=== PATIENT | male | born 1955 | race Caucasian/White ===

== ENCOUNTER 2019-07-30 08:11 | Observation (INO) | payer MEDICARE, OTHER, SELFPAY ==
[2019-07-30] MEDS ORDERED: Adacel (T-DAP) 0.5 ML SYRINGE ONE (08:46)
[2019-07-30] MEDS ORDERED: Dextrose 50% Abboject 50 ML SYRINGE SLOW IVP PRN (09:27)
[2019-07-30] MEDS ORDERED: Ondansetron PF 4 MG/2 ML Vial IVP PRN (09:27)
[2019-07-30] MEDS ORDERED: Insulin Regular 300 UNITS/3 ML VIAL SC PRN ×2 (09:27)
[2019-07-30] MEDS ORDERED: Dextrose 5% in Water 1,000 ML IV PRN (09:27)
[2019-07-30] MEDS ORDERED: traMADol HCl 50 MG TAB PO PRN ×2 (09:36)
[2019-07-30 10:29] LABS: Anion Gap 17 mmol/L (10-20); BUN (Urea Nitrogen) 14 mg/dL (8.4-25.7); Calc. Creatinine Clearance 0 mL/min (70-130); Calcium 8.6 mg/dL (7.8-10.44); Carbon Dioxide 23 mmol/L (23-31); Chloride 106 mmol/L (98-107); Estimated GFR-MDRD 86; Glucose 94 mg/dL (80-115); Phosphorus 2.9 mg/dL (2.3-4.7); Potassium 3.9 mmol/L (3.5-5.1); Sodium 142 mmol/L (136-145)
[2019-07-30 10:31] LABS: Hemoglobin 14.3 g/dL (14.0-18.0); Mean Corpuscular HGB CONC 31.3 g/dL (32.0-36.0); Mean Corpuscular Hemoglobin 28.1 pg (27.0-31.0); Mean Corpuscular Volume 89.7 fL (78.0-98.0); Platelet Count 250 thou/uL (130-400); RBC Distribution Width 13.5 % (11.5-14.5); Red Blood Cell (RBC) Count 5.11 mill/uL (4.70-6.10)
[2019-07-30 11:03] LABS: Band 8 % (5-11); Lymphocytes 10 % (21-51); MDiff Complete? YES; Monocytes 3 % (0-10); Neutrophil 79 % (42-75)
[2019-07-30 12:09] VITALS: BMI 28.1
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
[2019-07-30] MEDS: Acetaminophen 500 MG TAB PO SCH ×2 (12:27→18:27)
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
[2019-07-30] MEDS ORDERED: cloNIDine 0.1 MG TAB PO PRN ×3 (16:39→17:59)
[2019-07-30] MEDS ORDERED: Mag-Al Plus 1200 MG/1200 MG/120 MG/30 ML UDCUP PO PRN (16:39)
[2019-07-30] MEDS ORDERED: diphenhydrAMINE 50 MG CAP PO PRN (16:39)
[2019-07-30] MEDS: Cephalexin 250 MG CAP PO SCH ×2 (17:46→22:45)
[2019-07-30] MEDS ORDERED: diphenhydrAMINE 50 MG/ML VIAL IVP SCH (18:00)
[2019-07-30] MEDS ORDERED: Lorazepam 2 MG/ML VIAL SLOW IVP SCH (18:00)
[2019-07-30] MEDS ORDERED: Haloperidol Lactate 5 MG/ML VIAL SLOW IVP SCH (18:00)
[2019-07-30] MEDS: Famotidine/PF 20 mg/2ml Vial SLOW IVP SCH (21:11)
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
[2019-07-30] MEDS: Divalproex Sodium DR 500 MG TAB PO SCH (22:45)
[2019-07-30] MEDS: Furosemide 40 MG TAB PO SCH (22:45)
[2019-07-30] MEDS: Potassium Chloride 20 MEQ TAB PO SCH (22:45)
--- NOTE | 2019-07-31 00:25 | PRG ---
DATE OF SERVICE: 07/30/2019 SUBJECTIVE: The patient was seen during evening rounds, sleeping comfortably on the surgical floor. The patient's daughter states he has been sleeping since shift change. The patient refused to take his evening medications as he stated they did not look the same as her normal medications that he takes daily. The patient was severely agitated earlier in the day. The patient had put his clothes back on and was attending to leave the hospital. The patient is in involuntary admission to [facility], where he fell earlier today. OBJECTIVE: VITAL SIGNS: Temperature 97.5, pulse 85, respirations 16, SpO2 of 97% on room air, and blood pressure 116/77. GENERAL: Middle-aged gentleman, resting comfortably in hospital bed, in no acute distress. RESPIRATORY: Equal chest rise and fall. Respirations are even and nonlabored. ASSESSMENT: 1. Status post fall from standing with unknown loss of consciousness. No anticoagulation use. 2. Possible trace subarachnoid hemorrhage. 3. Left auricular hematoma, status post drainage. 4. Left lateral orbital wall fracture, fracture of the anterior and lateral olmstead of the left maxilla, and minimally depressed segmental fracture of the left zygoma. 5. Chronic bilateral lower extremity edema and cellulitis, currently being treated with Keflex. 6. History of schizophrenia, bipolar disorder, prediabetes, gout, and kidney stones. PLAN: Continue supportive care and q.2 hours neuro checks. The patient's repeat head CT, stable. The patient is to follow up in 1 month with Neurosurgery. Regular diet as tolerated. The patient should be able to be discharged back to [facility] after OMFS re-evaluate his ear tomorrow morning. Job ID: [id number] MTDD
[2019-07-31] MEDS: Acetaminophen 500 MG TAB PO SCH ×4 (01:52→18:47)
[2019-07-31] MEDS ORDERED: Levothyroxine Sodium 75 MCG TAB PO SCH (06:00)
[2019-07-31] MEDS: Senokot S 8.6-50 MG TAB PO SCH ×2 (06:46→09:22)
[2019-07-31] MEDS ORDERED: Allopurinol 100 MG TAB PO SCH (09:00)
[2019-07-31] MEDS ORDERED: Polyethylene Glycol 3350 17 GM Packet PO SCH (09:00)
[2019-07-31] MEDS: Cephalexin 250 MG CAP PO SCH ×3 (09:17→17:50)
[2019-07-31] MEDS: Potassium Chloride 20 MEQ TAB PO SCH (09:17)
[2019-07-31] MEDS: Furosemide 40 MG TAB PO SCH (09:17)
[2019-07-31] MEDS: Divalproex Sodium DR 500 MG TAB PO SCH (09:17)
[2019-07-31] MEDS: Famotidine/PF 20 mg/2ml Vial SLOW IVP SCH (09:24)
--- NOTE | 2019-07-31 09:30 | PRG ---
DATE OF SERVICE: 07/31/2019 SUBJECTIVE: Mr. Bernard has no complaints today. He is awake and alert. He is ambulating around in the room. His scalp dressing is intact. OBJECTIVE: VITAL SIGNS: He is afebrile. Vital signs are stable. CHEST: Clear. HEART: Regular rate. NEURO: Intact. ASSESSMENT: 1. Small subarachnoid, stable. 2. Sinus fracture, stable. PLAN: He is going to be discharged today. Job ID: [id number]
[2019-07-31 15:14] VITALS: BP 136/76; TEMP 98.4
--- NOTE | 2019-07-31 15:43 | DIS ---
DATE OF ADMISSION: 07/30/2019 DATE OF DISCHARGE: 07/31/2019 ADMISSION DIAGNOSES: Fall from standing, trace subarachnoid hemorrhage, left auricular hematoma, left orbital wall fracture, left maxillary sinus fracture, left zygomatic arch fracture. DISCHARGE DIAGNOSES: Fall from standing, trace subarachnoid hemorrhage, left auricular hematoma, left orbital wall fracture, left maxillary sinus fracture, left zygomatic arch fracture. CONSULTING PHYSICIANS: Dr. Carrasco of Neurosurgery and Dr. Jenkins of [facility]. PROCEDURES: None. HOSPITAL COURSE: The patient is a 64-year-old male, who presented from [facility] after a fall from standing. He was found to have a trace subarachnoid hemorrhage; left auricular hematoma; left orbital wall, left maxillary sinus, and left zygomatic arch fractures. The patient also had ongoing bilateral lower extremity cellulitis, for which he is receiving antibiotics. He was admitted to [facility]. Repeat CT of the brain was stable. Left auricular hematoma was drained and stable. The next day, a new dressing was placed. Dr. Jenkins evaluated the patient and recommended sinus precaution, dressing to left ear for another 24 hours and follow up in a week. Dr. Carrasco recommended follow up in 1 month with repeat head CT. The patient was sent home with Cipro x7 days per the recommendations of Dr. Jenkins due to his facial trauma. DISCHARGE DISPOSITION: [facility]. DISCHARGE CONDITION: Satisfactory. PHYSICAL EXAMINATION: VITAL SIGNS: Temperature 98, pulse 94, respirations 16, oxygen saturation 97% on room air, blood pressure 158/90. GENERAL: Well-appearing elderly male, sitting up at edge of bed with no signs of acute distress. PULMONARY: Equal chest rise and fall. No signs of acute respiratory distress. CARDIAC: Regular rate and rhythm. GI: Abdomen is soft, nontender, nondistended. EXTREMITIES: 2+ pulses in all extremities. Gross motor and sensation are intact. Persistent cellulitis in bilateral lower extremities. Face, he has an abrasion to his right forehead and nose. He also has bruising to his left ear. There is no auricular hematoma present any longer. NEUROLOGIC: GCS is 15. DISCHARGE INSTRUCTIONS: The patient was discharged to [facility]. He is to return there. Activity as tolerated. Regular diet. No therapy or equipment needed. DISCHARGE MEDICATIONS: Include; 1. Tylenol. 2. Allopurinol. 3. Keflex. 4. Cipro x7 days. 5. Clonidine. 6. Depakote. 7. Lasix. 8. Levothyroxine. 9. Potassium chloride. 10. Seroquel. 11. Vitamin A and D. FOLLOWUP APPOINTMENTS: The patient is to follow up in [address] Carrasco with repeat CT of the brain. He also has a followup with Dr. Jenkins in 1 week. No followup needed with Trauma Service. This is a summary of the patient's hospitalization. For full details, please see his medical record in its entirety. Job ID: [id number]
[2019-07-31] MEDS ORDERED: Ciprofloxacin 500 MG TAB PO SCH (20:00)
== END 2019-07-31 20:30 | disposition short-term general hospital (02) ==
LOC: ERS 08:11 → SURG A 09:26
PROVIDERS: ADMIT Surgery; ATTEND Surgery
DX: S06.6X9A Traumatic subarachnoid hemorrhage with loss of consciousness of unspecified duration, initial encounter (principal); S02.85XA Fracture of orbit, unspecified, initial encounter for closed fracture; S02.40DA Maxillary fracture, left side, initial encounter for closed fracture; S02.40FA Zygomatic fracture, left side, initial encounter for closed fracture; S00.432A Contusion of left ear, initial encounter; L03.116 Cellulitis of left lower limb; L03.115 Cellulitis of right lower limb; R73.03 Prediabetes; F20.9 Schizophrenia, unspecified; F31.9 Bipolar disorder, unspecified; M10.9 Gout, unspecified; Z79.899 Other long term (current) drug therapy; W18.30XA Fall on same level, unspecified, initial encounter
CPT/HCPCS: 36415; 36416; 70450; 80048; 83735; 84100; 85007; 85027; 90471; 90715; 93005; 93010; 94760; 96374; 96375; 96376; G0378; G0390; J0690; J1200; J1630; J2060; S0028

== ENCOUNTER 2020-11-26 14:46 | Emergency (ER) | payer SELFPAY ==
[2020-11-26 16:12] LABS: #Basophils 0.1 thou/uL (0.0-0.2); #Eosinphils 0.1 thou/uL (0.0-0.7); #Lymphocytes 1.8 thou/uL (1.20-3.40); #Monocytes 0.7 thou/uL (0.11-0.59); #Neutrophils 6.1 thou/uL (1.40-6.50); %Basophils 0.7 % (0.0-1.0); %Eosinophils 1.6 % (0.0-10.0); %Lymphocytes 20.9 % (21.0-51.0); %Monocytes 7.6 % (0.0-10.0); %Neutrophils 69.2 % (42.0-75.0); Hemoglobin 17.2 g/dL (14.0-18.0); Mean Corpuscular Hemoglobin 29.6 pg (27.0-31.0); Mean Corpuscular Volume 86.9 fL (78.0-98.0); Mean Platelet Volume 8.3 fL (7.4-10.4); Platelet Count 206 thou/uL (130-400); Red Blood Cell (RBC) Count 5.83 mill/uL (4.70-6.10); White Blood Cell (WBC) Count 8.8 thou/uL (4.8-10.8)
[2020-11-26 16:33] LABS: ALT (SGPT) 19 U/L (8-55); AST (SGOT) 21 U/L (5-34); Albumin 3.9 g/dL (3.4-4.8); Alkaline Phosphatase 60 U/L (40-110); Anion Gap 11 mmol/L (10-20); BUN (Urea Nitrogen) 13 mg/dL (8.4-25.7); Bilirubin, Total 0.7 mg/dL (0.2-1.2); Calc. Creatinine Clearance 0 mL/min (70-130); Calcium 9.9 mg/dL (7.8-10.44); Carbon Dioxide 29 mmol/L (23-31); Chloride 104 mmol/L (98-107); Globulin 2.7 g/dL (2.4-3.5); Glucose 93 mg/dL (80-115); Potassium 5.2 mmol/L (3.5-5.1); Protein, Total 6.6 g/dL (5.8-8.1); Sodium 139 mmol/L (136-145)
[2020-11-26] MEDS ORDERED: Furosemide 40 MG TAB ONE (18:04)
[2020-11-26] MEDS ORDERED: Nitroglycerin 2% Ointment 1 INCH/1 GM Packet ONE (18:04)
[2020-11-26] MEDS ORDERED: Furosemide 20 MG/2 ML VIAL ONE (18:06)
== END 2020-11-26 19:04 | disposition home or self-care (01) ==
LOC: ERS 14:46
DX: M79.89 Other specified soft tissue disorders (principal); M10.9 Gout, unspecified
CPT/HCPCS: 36415; 71045; 80053; 83880; 84484; 85025; 93005; 96374; J1940

== ENCOUNTER 2020-12-04 11:00 | Emergency (ER) | payer MEDICARE, SELFPAY ==
[2020-12-04 12:15] LABS: #Basophils 0.1 thou/uL (0.0-0.2); #Eosinphils 0.1 thou/uL (0.0-0.7); #Lymphocytes 1.5 thou/uL (1.20-3.40); #Monocytes 0.6 thou/uL (0.11-0.59); %Basophils 1.3 % (0.0-1.0); %Eosinophils 1.9 % (0.0-10.0); %Lymphocytes 20.5 % (21.0-51.0); %Monocytes 8.5 % (0.0-10.0); %Neutrophils 67.8 % (42.0-75.0); Hemoglobin 16.7 g/dL (14.0-18.0); Mean Corpuscular Hemoglobin 29.1 pg (27.0-31.0); Mean Corpuscular Volume 85.7 fL (78.0-98.0); Mean Platelet Volume 8.2 fL (7.4-10.4); Platelet Count 208 thou/uL (130-400); Red Blood Cell (RBC) Count 5.73 mill/uL (4.70-6.10); White Blood Cell (WBC) Count 7.3 thou/uL (4.8-10.8)
[2020-12-04 12:33] LABS: ALT (SGPT) 34 U/L (8-55); AST (SGOT) 33 U/L (5-34); Albumin 3.8 g/dL (3.4-4.8); Alkaline Phosphatase 66 U/L (40-110); Anion Gap 13 mmol/L (10-20); BUN (Urea Nitrogen) 24 mg/dL (8.4-25.7); Bilirubin, Total 0.8 mg/dL (0.2-1.2); Calc. Creatinine Clearance 0 mL/min (70-130); Calcium 9.2 mg/dL (7.8-10.44); Carbon Dioxide 30 mmol/L (23-31); Chloride 101 mmol/L (98-107); Globulin 2.6 g/dL (2.4-3.5); Glucose 102 mg/dL (80-115); Potassium 4.1 mmol/L (3.5-5.1); Protein, Total 6.4 g/dL (5.8-8.1); Sodium 140 mmol/L (136-145)
== END 2020-12-04 13:37 | disposition home or self-care (01) ==
LOC: ERS 11:00
DX: M79.89 Other specified soft tissue disorders (principal); Z79.899 Other long term (current) drug therapy; M10.9 Gout, unspecified
CPT/HCPCS: 36415; 71045; 80053; 83880; 84484; 85025; 93005

== ENCOUNTER 2021-01-03 11:54 | Emergency (ER) | payer MEDICARE ==
[2021-01-03 12:46] LABS: #Basophils 0.1 thou/uL (0.0-0.2); #Eosinphils 0.1 thou/uL (0.0-0.7); #Lymphocytes 1.3 thou/uL (1.20-3.40); #Monocytes 0.7 thou/uL (0.11-0.59); #Neutrophils 5.1 thou/uL (1.40-6.50); %Basophils 1.1 % (0.0-1.0); %Eosinophils 1.3 % (0.0-10.0); %Lymphocytes 18.3 % (21.0-51.0); %Monocytes 9.2 % (0.0-10.0); %Neutrophils 70.1 % (42.0-75.0); Hemoglobin 15.2 g/dL (14.0-18.0); Mean Corpuscular HGB CONC 32.8 g/dL (32.0-36.0); Mean Corpuscular Hemoglobin 28.7 pg (27.0-31.0); Mean Corpuscular Volume 87.4 fL (78.0-98.0); Mean Platelet Volume 7.8 fL (7.4-10.4); Platelet Count 243 thou/uL (130-400); RBC Distribution Width 13.1 % (11.5-14.5); Red Blood Cell (RBC) Count 5.28 mill/uL (4.70-6.10); White Blood Cell (WBC) Count 7.3 thou/uL (4.8-10.8)
[2021-01-03 12:59] LABS: Bacteria/HPF None Seen HPF (None Seen); Bilirubin Negative (Negative); Blood, Urine Trace (Negative); Clarity Clear (Clear); Glucose, Urine (Dipstick) Normal (Negative); Ketone, Urine Negative (Negative); Leukocyte Negative Leu/uL (Negative); Nitrite Negative (Negative); Protein, Urine (Dipstick) Negative (Neg-Trace); Specific Gravity, Urine 1.014 (1.002-1.036); Squamous Epithelial None Seen HPF (0-3); Urobilinogen Normal mg/dL (Less than 2); WBC/HPF 0-3 HPF (0-3); pH, Urine 6.5 (5.0-9.0)
[2021-01-03 13:07] LABS: ALT (SGPT) 18 U/L (8-55); AST (SGOT) 22 U/L (5-34); Albumin 3.5 g/dL (3.4-4.8); Alkaline Phosphatase 85 U/L (40-110); Anion Gap 11 mmol/L (10-20); BUN (Urea Nitrogen) 17 mg/dL (8.4-25.7); Bilirubin, Total 0.8 mg/dL (0.2-1.2); Calc. Creatinine Clearance 0 mL/min (70-130); Calcium 9.1 mg/dL (7.8-10.44); Carbon Dioxide 32 mmol/L (23-31); Chloride 100 mmol/L (98-107); Globulin 3.2 g/dL (2.4-3.5); Glucose 91 mg/dL (80-115); Potassium 3.6 mmol/L (3.5-5.1); Protein, Total 6.7 g/dL (5.8-8.1); Sodium 139 mmol/L (136-145)
[2021-01-03] MEDS ORDERED: Furosemide 100 MG/10 ML VIAL ONE (14:20)
[2021-01-03] MEDS ORDERED: Ibuprofen 800 MG TAB ONE (14:20)
== END 2021-01-03 15:10 | disposition home or self-care (01) ==
LOC: ERS 11:54
DX: R60.0 Localized edema (principal); M10.9 Gout, unspecified; R73.03 Prediabetes; Z79.899 Other long term (current) drug therapy
CPT/HCPCS: 71045; 80053; 81003; 81015; 83880; 84443; 85025; 93005; 96374; J1940

== ENCOUNTER 2021-01-05 20:29 | Inpatient (IN) | payer MEDICARE ==
[~2021-01-05 20:29] MED LIST: Iopamidol-370 76% 500 ML 1 ML ONE
[2021-01-05 21:20] LABS: #Basophils 0.1 thou/uL (0.0-0.2); #Eosinphils 0.2 thou/uL (0.0-0.7); #Lymphocytes 1.5 thou/uL (1.20-3.40); #Monocytes 0.5 thou/uL (0.11-0.59); #Neutrophils 4.8 thou/uL (1.40-6.50); %Basophils 1.1 % (0.0-1.0); %Eosinophils 2.1 % (0.0-10.0); %Lymphocytes 21.2 % (21.0-51.0); %Monocytes 7.5 % (0.0-10.0); %Neutrophils 68.1 % (42.0-75.0); Hemoglobin 16.2 g/dL (14.0-18.0); Mean Corpuscular HGB CONC 33.5 g/dL (32.0-36.0); Mean Corpuscular Hemoglobin 29.1 pg (27.0-31.0); Mean Corpuscular Volume 86.8 fL (78.0-98.0); Mean Platelet Volume 8.2 fL (7.4-10.4); Platelet Count 254 thou/uL (130-400); Red Blood Cell (RBC) Count 5.56 mill/uL (4.70-6.10); White Blood Cell (WBC) Count 7.1 thou/uL (4.8-10.8)
[2021-01-05 21:37] LABS: ALT (SGPT) 21 U/L (8-55); AST (SGOT) 26 U/L (5-34); Alkaline Phosphatase 96 U/L (40-110); Anion Gap 13 mmol/L (10-20); BUN (Urea Nitrogen) 17 mg/dL (8.4-25.7); Bilirubin, Total 1.6 mg/dL (0.2-1.2); Calc. Creatinine Clearance 0 mL/min (70-130); Calcium 9.2 mg/dL (7.8-10.44); Carbon Dioxide 30 mmol/L (23-31); Chloride 100 mmol/L (98-107); Globulin 3.1 g/dL (2.4-3.5); Glucose 80 mg/dL (80-115); Potassium 3.6 mmol/L (3.5-5.1); Protein, Total 7.1 g/dL (5.8-8.1); Sodium 139 mmol/L (136-145)
[2021-01-05] MEDS ORDERED: Aspirin Chewable 81 MG TAB ONE (23:22)
[2021-01-05] MEDS ORDERED: Enoxaparin Sodium 100 MG/ML SYRINGE ONE (23:22)
[2021-01-06] MEDS ORDERED: Ondansetron PF 4 MG/2 ML Vial IVP PRN (03:43)
[2021-01-06 04:48] LABS: #Eosinphils 0.1 thou/uL (0.0-0.7); #Lymphocytes 1.4 thou/uL (1.20-3.40); #Monocytes 0.6 thou/uL (0.11-0.59); #Neutrophils 4.7 thou/uL (1.40-6.50); %Basophils 0.6 % (0.0-1.0); %Eosinophils 1.5 % (0.0-10.0); %Lymphocytes 20.5 % (21.0-51.0); %Monocytes 9.3 % (0.0-10.0); %Neutrophils 68.1 % (42.0-75.0); Hemoglobin 14.3 g/dL (14.0-18.0); Mean Corpuscular HGB CONC 31.4 g/dL (32.0-36.0); Mean Corpuscular Hemoglobin 27.5 pg (27.0-31.0); Mean Corpuscular Volume 87.5 fL (78.0-98.0); Mean Platelet Volume 7.9 fL (7.4-10.4); Platelet Count 221 thou/uL (130-400); RBC Distribution Width 13.1 % (11.5-14.5); Red Blood Cell (RBC) Count 5.21 mill/uL (4.70-6.10); White Blood Cell (WBC) Count 6.9 thou/uL (4.8-10.8)
[2021-01-06 05:08] LABS: Anion Gap 11 mmol/L (10-20); BUN (Urea Nitrogen) 17 mg/dL (8.4-25.7); Calc. Creatinine Clearance 121 mL/min (70-130); Calcium 8.8 mg/dL (7.8-10.44); Carbon Dioxide 32 mmol/L (23-31); Chloride 102 mmol/L (98-107); Glucose 95 mg/dL (80-115); Potassium 4.1 mmol/L (3.5-5.1); Sodium 141 mmol/L (136-145)
[2021-01-06] MEDS ORDERED: Furosemide 20 MG TAB PO SCH (09:00)
[2021-01-06] MEDS: Furosemide 80 MG TAB PO SCH ×2 (09:51→15:46)
[2021-01-06] MEDS: Apixaban 5 MG TAB PO SCH ×2 (11:49→23:30)
[2021-01-06 17:03] LABS: SARS-CoV-2 PCR by NAA Not Detected (NotDetected)
[2021-01-06] MEDS: Clindamycin 150 MG CAP PO SCH ×2 (17:24→23:29)
[2021-01-06] MEDS: Acetaminophen 325 MG TAB PO PRN (20:34)
[2021-01-07] MEDS: Acetaminophen 325 MG TAB PO PRN ×2 (04:03→09:39)
[2021-01-07 05:35] LABS: #Eosinphils 0.1 thou/uL (0.0-0.7); #Lymphocytes 1.5 thou/uL (1.20-3.40); #Monocytes 0.8 thou/uL (0.11-0.59); #Neutrophils 6.4 thou/uL (1.40-6.50); %Basophils 0.5 % (0.0-1.0); %Eosinophils 1.6 % (0.0-10.0); %Lymphocytes 16.6 % (21.0-51.0); %Monocytes 8.9 % (0.0-10.0); %Neutrophils 72.4 % (42.0-75.0); Hemoglobin 14.4 g/dL (14.0-18.0); Mean Corpuscular HGB CONC 33.3 g/dL (32.0-36.0); Mean Corpuscular Hemoglobin 29.2 pg (27.0-31.0); Mean Corpuscular Volume 87.6 fL (78.0-98.0); Mean Platelet Volume 8.2 fL (7.4-10.4); Platelet Count 192 thou/uL (130-400); RBC Distribution Width 13.1 % (11.5-14.5); Red Blood Cell (RBC) Count 4.94 mill/uL (4.70-6.10); White Blood Cell (WBC) Count 8.9 thou/uL (4.8-10.8)
[2021-01-07 05:57] LABS: Anion Gap 13 mmol/L (10-20); BUN (Urea Nitrogen) 14 mg/dL (8.4-25.7); Calc. Creatinine Clearance 133 mL/min (70-130); Calcium 8.4 mg/dL (7.8-10.44); Carbon Dioxide 28 mmol/L (23-31); Chloride 103 mmol/L (98-107); Glucose 101 mg/dL (80-115); Potassium 3.6 mmol/L (3.5-5.1); Sodium 140 mmol/L (136-145)
[2021-01-07] MEDS: Furosemide 80 MG TAB PO SCH ×2 (09:38→12:59)
[2021-01-07] MEDS: Clindamycin 150 MG CAP PO SCH ×2 (09:38→17:48)
[2021-01-07] MEDS: Apixaban 5 MG TAB PO SCH (11:10)
[2021-01-07] MEDS ORDERED: Ibuprofen 600 MG TAB PO PRN (11:31)
[2021-01-07 18:00] LABS: Magnesium 1.8 mg/dL (1.6-2.6); Potassium 3.5 mmol/L (3.5-5.1)
[2021-01-08] MEDS: Clindamycin 150 MG CAP PO SCH ×3 (00:41→15:46)
[2021-01-08] MEDS: Apixaban 5 MG TAB PO SCH (00:41)
[2021-01-08 05:36] LABS: #Eosinphils 0.1 thou/uL (0.0-0.7); #Lymphocytes 1.7 thou/uL (1.20-3.40); #Monocytes 0.8 thou/uL (0.11-0.59); #Neutrophils 6.3 thou/uL (1.40-6.50); %Basophils 0.1 % (0.0-1.0); %Eosinophils 1.3 % (0.0-10.0); %Lymphocytes 18.7 % (21.0-51.0); %Monocytes 8.8 % (0.0-10.0); %Neutrophils 71.2 % (42.0-75.0); Hemoglobin 14.6 g/dL (14.0-18.0); Mean Corpuscular HGB CONC 32.4 g/dL (32.0-36.0); Mean Corpuscular Hemoglobin 28.1 pg (27.0-31.0); Mean Corpuscular Volume 86.7 fL (78.0-98.0); Platelet Count 228 thou/uL (130-400); RBC Distribution Width 13.1 % (11.5-14.5); Red Blood Cell (RBC) Count 5.19 mill/uL (4.70-6.10); White Blood Cell (WBC) Count 8.9 thou/uL (4.8-10.8)
[2021-01-08 06:00] LABS: Anion Gap 13 mmol/L (10-20); BUN (Urea Nitrogen) 17 mg/dL (8.4-25.7); Calc. Creatinine Clearance 122 mL/min (70-130); Calcium 8.5 mg/dL (7.8-10.44); Carbon Dioxide 28 mmol/L (23-31); Chloride 101 mmol/L (98-107); Glucose 90 mg/dL (80-115); Potassium 3.7 mmol/L (3.5-5.1); Sodium 138 mmol/L (136-145)
[2021-01-08] MEDS: Furosemide 80 MG TAB PO SCH ×2 (08:18→15:47)
[2021-01-08] MEDS ORDERED: Potassium Chloride 20 MEQ TAB PO SCH (10:15)
[2021-01-08 11:43] LABS: Cardiac Risk 4.6 (Less than 4.5)
[2021-01-08] MEDS: Enoxaparin Sodium 100 MG/ML SYRINGE SC SCH (20:53)
[2021-01-09] MEDS: Clindamycin 150 MG CAP PO SCH ×3 (00:56→18:51)
[2021-01-09] MEDS ORDERED: Levothyroxine Sodium 25 MCG TAB PO SCH (06:00)
[2021-01-09 06:10] LABS: #Basophils 0.1 thou/uL (0.0-0.2); #Eosinphils 0.2 thou/uL (0.0-0.7); #Lymphocytes 1.7 thou/uL (1.20-3.40); #Monocytes 0.7 thou/uL (0.11-0.59); #Neutrophils 5.1 thou/uL (1.40-6.50); %Eosinophils 2.5 % (0.0-10.0); %Lymphocytes 22.2 % (21.0-51.0); %Monocytes 9.1 % (0.0-10.0); %Neutrophils 65.3 % (42.0-75.0); Hemoglobin 16.2 g/dL (14.0-18.0); Mean Corpuscular HGB CONC 33.3 g/dL (32.0-36.0); Mean Corpuscular Hemoglobin 29.1 pg (27.0-31.0); Mean Corpuscular Volume 87.3 fL (78.0-98.0); Mean Platelet Volume 8.3 fL (7.4-10.4); Platelet Count 237 thou/uL (130-400); RBC Distribution Width 13.2 % (11.5-14.5); Red Blood Cell (RBC) Count 5.56 mill/uL (4.70-6.10); White Blood Cell (WBC) Count 7.8 thou/uL (4.8-10.8)
[2021-01-09] MEDS: Levothyroxine Sodium 50 MCG TAB PO SCH (06:13)
[2021-01-09] MEDS: Acetaminophen 325 MG TAB PO PRN (06:14)
[2021-01-09 06:21] VITALS: BMI 26.3
[2021-01-09 06:27] LABS: Anion Gap 15 mmol/L (10-20); BUN (Urea Nitrogen) 21 mg/dL (8.4-25.7); Calc. Creatinine Clearance 100 mL/min (70-130); Calcium 9.3 mg/dL (7.8-10.44); Carbon Dioxide 28 mmol/L (23-31); Chloride 101 mmol/L (98-107); Glucose 100 mg/dL (80-115); Potassium 4.1 mmol/L (3.5-5.1); Sodium 140 mmol/L (136-145)
[2021-01-09] MEDS: Potassium Chloride 20 MEQ TAB PO SCH (08:27)
[2021-01-09] MEDS: Furosemide 80 MG TAB PO SCH ×2 (08:28→13:14)
[2021-01-09] MEDS: Enoxaparin Sodium 100 MG/ML SYRINGE SC SCH (08:28)
[2021-01-09] MEDS: Apixaban 5 MG TAB PO SCH (22:29)
[2021-01-10] MEDS: Clindamycin 150 MG CAP PO SCH ×4 (00:40→23:29)
[2021-01-10 06:15] LABS: Anion Gap 14 mmol/L (10-20); BUN (Urea Nitrogen) 25 mg/dL (8.4-25.7); Calc. Creatinine Clearance 95 mL/min (70-130); Calcium 9.2 mg/dL (7.8-10.44); Carbon Dioxide 29 mmol/L (23-31); Chloride 100 mmol/L (98-107); Glucose 102 mg/dL (80-115); Sodium 139 mmol/L (136-145)
[2021-01-10] MEDS: Levothyroxine Sodium 50 MCG TAB PO SCH (06:35)
[2021-01-10] MEDS: Potassium Chloride 20 MEQ TAB PO SCH (08:52)
[2021-01-10] MEDS: Furosemide 80 MG TAB PO SCH ×2 (08:52→13:50)
[2021-01-10] MEDS: Apixaban 5 MG TAB PO SCH ×2 (08:54→20:04)
[2021-01-10] MEDS ORDERED: Calcium Carbonate 500 MG ChewTAB PO PRN (11:46)
[2021-01-10] MEDS ORDERED: Divalproex Sodium DR 500 MG TAB PO SCH (21:00)
[2021-01-11] MEDS: Acetaminophen 325 MG TAB PO PRN (02:29)
[2021-01-11] MEDS: Levothyroxine Sodium 50 MCG TAB PO SCH (06:36)
[2021-01-11] MEDS: Apixaban 5 MG TAB PO SCH (08:24)
[2021-01-11] MEDS: Potassium Chloride 20 MEQ TAB PO SCH (08:24)
[2021-01-11] MEDS: Furosemide 80 MG TAB PO SCH ×2 (08:24→14:31)
[2021-01-11] MEDS: Clindamycin 150 MG CAP PO SCH ×2 (08:24→16:11)
[2021-01-11 17:09] VITALS: BP 127/71; TEMP 98.4
== END 2021-01-11 17:43 | disposition home or self-care (01) | DRG 175 ==
LOC: ERS 20:29 → 2SW 01-06 00:11 → OBSVTOIN 01-08 16:11
PROVIDERS: ADMIT Internal Medicine; ATTEND Internal Medicine
DX: I26.99 Other pulmonary embolism without acute cor pulmonale (principal); I46.2 Cardiac arrest due to underlying cardiac condition; I50.32 Chronic diastolic (congestive) heart failure; I44.2 Atrioventricular block, complete; M10.9 Gout, unspecified; E03.9 Hypothyroidism, unspecified; N20.0 Calculus of kidney; I87.8 Other specified disorders of veins; F31.9 Bipolar disorder, unspecified; E78.5 Hyperlipidemia, unspecified; G89.29 Other chronic pain; Z20.822 Contact with and (suspected) exposure to COVID-19; Z91.14 Patient's other noncompliance with medication regimen; Z79.899 Other long term (current) drug therapy; Z90.49 Acquired absence of other specified parts of digestive tract; Z90.89 Acquired absence of other organs; Z98.890 Other specified postprocedural states
CPT/HCPCS: 36415; 71045; 71275; 80048; 80053; 80061; 83735; 83880; 84439; 84443; 84484; 85025; 85379; 93005; 93010; 93306; 93970; 96372; J1650; J3475; J3490; Q9967; U0003; U0005

== ENCOUNTER 2021-01-27 18:00 | Emergency (ER) | payer MEDICARE ==
[2021-01-27 18:45] LABS: Hemoglobin 14.2 g/dL (14.0-18.0); Mean Corpuscular HGB CONC 33.2 g/dL (32.0-36.0); Mean Corpuscular Hemoglobin 29.1 pg (27.0-31.0); Mean Corpuscular Volume 87.6 fL (78.0-98.0); Mean Platelet Volume 8.4 fL (7.4-10.4); Platelet Count 254 thou/uL (130-400); RBC Distribution Width 13.2 % (11.5-14.5); Red Blood Cell (RBC) Count 4.87 mill/uL (4.70-6.10); White Blood Cell (WBC) Count 6.7 thou/uL (4.8-10.8)
[2021-01-27 19:03] LABS: ALT (SGPT) 19 U/L (8-55); AST (SGOT) 19 U/L (5-34); Albumin 3.6 g/dL (3.4-4.8); Alkaline Phosphatase 73 U/L (40-110); Anion Gap 13 mmol/L (10-20); BUN (Urea Nitrogen) 12 mg/dL (8.4-25.7); Band 5 % (5-11); Bilirubin, Total 0.6 mg/dL (0.2-1.2); Calc. Creatinine Clearance 0 mL/min (70-130); Calcium 8.8 mg/dL (7.8-10.44); Carbon Dioxide 28 mmol/L (23-31); Chloride 102 mmol/L (98-107); Eosinophils 4 % (0-10); Globulin 2.6 g/dL (2.4-3.5); Glucose 93 mg/dL (80-115); Lymphocytes 22 % (21-51); MDiff Complete? YES; Magnesium 1.9 mg/dL (1.6-2.6); Monocytes 6 % (0-10); Neutrophil 58 % (42-75); Platelet Morphology Comment Appears Adequate; Potassium 3.7 mmol/L (3.5-5.1); Protein, Total 6.2 g/dL (5.8-8.1); RBC Morphology Normal; Reactive Lymphocytes 3 % (0-10); Sodium 139 mmol/L (136-145)
[2021-01-27] MEDS ORDERED: Furosemide 40 MG/4 ML VIAL ONE (19:25)
== END 2021-01-27 20:42 | disposition home or self-care (01) ==
LOC: ERS 18:00
DX: R60.0 Localized edema (principal); M79.661 Pain in right lower leg; M10.9 Gout, unspecified; Z79.01 Long term (current) use of anticoagulants; Z79.899 Other long term (current) drug therapy
CPT/HCPCS: 71045; 80053; 83735; 83880; 84484; 85025; 93005; 96374; J1940

== ENCOUNTER 2021-02-03 21:35 | Emergency (ER) | payer MEDICARE ==
[2021-02-03] MEDS ORDERED: Ibuprofen 200 MG TAB ONE (23:24)
== END 2021-02-04 00:35 | disposition home or self-care (01) ==
LOC: ERS 21:35
DX: M79.604 Pain in right leg (principal); M79.605 Pain in left leg; Z79.899 Other long term (current) drug therapy; Z79.01 Long term (current) use of anticoagulants
CPT/HCPCS: 99283

== ENCOUNTER 2021-02-10 08:14 | Inpatient (IN) | payer MEDICARE ==
[2021-02-10] MEDS ORDERED: Cefepime 2 GM VIAL ONE (08:50)
[2021-02-10] MEDS ORDERED: Vancomycin 1 GM/200 ML BAG ONE (08:50)
[2021-02-10 08:56] LABS: #Eosinphils 0.1 thou/uL (0.0-0.7); #Monocytes 0.6 thou/uL (0.11-0.59); %Basophils 0.1 % (0.0-1.0); %Eosinophils 2.4 % (0.0-10.0); %Lymphocytes 17.7 % (21.0-51.0); %Monocytes 10.4 % (0.0-10.0); %Neutrophils 69.5 % (42.0-75.0); Hemoglobin 15.1 g/dL (14.0-18.0); Mean Corpuscular HGB CONC 32.1 g/dL (32.0-36.0); Mean Corpuscular Volume 87.1 fL (78.0-98.0); Mean Platelet Volume 7.5 fL (7.4-10.4); Platelet Count 295 thou/uL (130-400); RBC Distribution Width 13.2 % (11.5-14.5); Red Blood Cell (RBC) Count 5.39 mill/uL (4.70-6.10); White Blood Cell (WBC) Count 5.8 thou/uL (4.8-10.8)
[2021-02-10 09:11] LABS: ALT (SGPT) 27 U/L (8-55); AST (SGOT) 20 U/L (5-34); Albumin 3.9 g/dL (3.4-4.8); Alkaline Phosphatase 83 U/L (40-110); Anion Gap 14 mmol/L (10-20); BUN (Urea Nitrogen) 16 mg/dL (8.4-25.7); Bilirubin, Total 0.6 mg/dL (0.2-1.2); Calc. Creatinine Clearance 0 mL/min (70-130); Calcium 9.5 mg/dL (7.8-10.44); Carbon Dioxide 27 mmol/L (23-31); Chloride 102 mmol/L (98-107); Globulin 3.4 g/dL (2.4-3.5); Glucose 88 mg/dL (80-115); Potassium 3.7 mmol/L (3.5-5.1); Protein, Total 7.3 g/dL (5.8-8.1); Sodium 139 mmol/L (136-145)
[2021-02-10 10:23] LABS: Bacteria/HPF None Seen HPF (None Seen); Bilirubin Negative (Negative); Blood, Urine 2+ (Negative); Clarity Clear (Clear); Glucose, Urine (Dipstick) Normal (Negative); Ketone, Urine Negative (Negative); Leukocyte Negative Leu/uL (Negative); Nitrite Negative (Negative); Protein, Urine (Dipstick) Negative (Neg-Trace); RBC/HPF 21-50 HPF (0-3); Specific Gravity, Urine 1.014 (1.002-1.036); Squamous Epithelial None Seen HPF (0-3); Urobilinogen Normal mg/dL (Less than 2); WBC/HPF 0-3 HPF (0-3); pH, Urine 6.5 (5.0-9.0)
[2021-02-10 12:11] VITALS: BMI 27.2
[2021-02-10] MEDS ORDERED: Ondansetron ODT 4 MG TAB PO PRN (14:12)
[2021-02-10] MEDS ORDERED: Furosemide 20 MG/2 ML VIAL SLOW IVP SCH (14:30)
[2021-02-10 16:33] LABS: Hemoglobin A1c 5.5 % (4.0-6.0)
[2021-02-10 17:26] LABS: Syphilis Antibody Nonreactive (Nonreactive); Syphilis Antibody Index 0.06 S/CO (<1.00 Non-Reactive)
[2021-02-10 17:28] LABS: HIV (1/2) Antibody/Antigen Non-Reactive (NonReactive); HIV 1/2 INDEX 0.11 S/CO (<1.00); Hep C IgG Ab Non-Reactive (NonReactive); Hep C Index 0.04 S/CO (0-0.79); Thyroid Stimulating Hormone 4.9098 uIU/mL (0.35-4.94)
[2021-02-10] MEDS: Apixaban 5 MG TAB PO SCH (20:18)
[2021-02-10] MEDS ORDERED: Apixaban 5 MG TAB PO SCH (21:00)
[2021-02-11] MEDS ORDERED: Levothyroxine Sodium 50 MCG TAB PO SCH (06:00)
[2021-02-11 07:49] LABS: Anion Gap 11 mmol/L (10-20); BUN (Urea Nitrogen) 16 mg/dL (8.4-25.7); Calc. Creatinine Clearance 123 mL/min (70-130); Calcium 9.2 mg/dL (7.8-10.44); Carbon Dioxide 26 mmol/L (23-31); Cardiac Risk 5.2 (Less than 4.5); Chloride 104 mmol/L (98-107); Cholesterol 172 mg/dl (< 200 Desired); Glucose 92 mg/dL (80-115); HDL Cholesterol 33 mg/dL (>60 Neg Risk); LDL Cholesterol, Calculated 110 mg/dL; Sodium 137 mmol/L (136-145); Triglycerides 147 mg/dL (Less than 150)
[2021-02-11] MEDS: Apixaban 5 MG TAB PO SCH ×2 (08:37→20:43)
[2021-02-11] MEDS: Potassium Chloride 10 MEQ TAB PO SCH (08:37)
[2021-02-11] MEDS: Furosemide 20 MG/2 ML VIAL SLOW IVP SCH (08:38)
[2021-02-11] MEDS: Acetaminophen 325 MG TAB PO PRN (08:38)
[2021-02-11 11:21] LABS: SARS-CoV-2 PCR by NAA Not Detected (NotDetected)
[2021-02-12] MEDS: Levothyroxine Sodium 75 MCG TAB PO SCH (05:47)
[2021-02-12] MEDS ORDERED: Levothyroxine Sodium 50 MCG TAB PO SCH (06:00)
[2021-02-12] MEDS: Acetaminophen 325 MG TAB PO PRN (08:09)
[2021-02-12] MEDS: Potassium Chloride 10 MEQ TAB PO SCH (08:10)
[2021-02-12] MEDS: Furosemide 20 MG/2 ML VIAL SLOW IVP SCH (08:10)
[2021-02-12] MEDS: Apixaban 5 MG TAB PO SCH ×2 (08:11→20:58)
[2021-02-12] MEDS: Allopurinol 100 MG TAB PO SCH (11:34)
[2021-02-13] MEDS: Levothyroxine Sodium 75 MCG TAB PO SCH (05:33)
[2021-02-13] MEDS ORDERED: Furosemide 20 MG TAB PO SCH ×2 (09:00→09:15)
[2021-02-13] MEDS ORDERED: Furosemide 40 MG TAB PO SCH ×2 (09:00→09:10)
[2021-02-13] MEDS: Potassium Chloride 10 MEQ TAB PO SCH (09:45)
[2021-02-13] MEDS: Apixaban 5 MG TAB PO SCH (09:45)
[2021-02-13] MEDS: Allopurinol 100 MG TAB PO SCH (09:46)
[2021-02-13 10:54] LABS: Anion Gap 13 mmol/L (10-20); BUN (Urea Nitrogen) 22 mg/dL (8.4-25.7); Calc. Creatinine Clearance 132 mL/min (70-130); Calcium 9.1 mg/dL (7.8-10.44); Carbon Dioxide 25 mmol/L (23-31); Chloride 103 mmol/L (98-107); Glucose 105 mg/dL (80-115); Potassium 3.8 mmol/L (3.5-5.1); Sodium 137 mmol/L (136-145)
[2021-02-13 14:47] VITALS: BP 144/81; TEMP 98.5
[2021-02-14] MEDS ORDERED: Furosemide 20 MG TAB PO SCH (09:00)
== END 2021-02-13 14:31 | disposition home or self-care (01) | DRG 300 ==
LOC: ERS 08:14 → T4-B 10:10 → OBSVTOIN 02-12 12:34
PROVIDERS: ADMIT Emergency Medicine; ATTEND Emergency Medicine
DX: I87.2 Venous insufficiency (chronic) (peripheral) (principal); I50.32 Chronic diastolic (congestive) heart failure; Z20.822 Contact with and (suspected) exposure to COVID-19; E03.9 Hypothyroidism, unspecified; E78.5 Hyperlipidemia, unspecified; I11.0 Hypertensive heart disease with heart failure; F31.9 Bipolar disorder, unspecified; L98.499 Non-pressure chronic ulcer of skin of other sites with unspecified severity; R73.03 Prediabetes; M10.9 Gout, unspecified; Z90.49 Acquired absence of other specified parts of digestive tract; Z79.01 Long term (current) use of anticoagulants; Z79.899 Other long term (current) drug therapy; Z90.09 Acquired absence of other part of head and neck; Z59.00 Homelessness unspecified; Z86.711 Personal history of pulmonary embolism; Z79.890 Hormone replacement therapy
CPT/HCPCS: 36415; 75635; 80048; 80053; 80061; 81003; 81015; 83036; 83605; 83880; 84443; 84550; 85025; 86780; 86803; 87040; 87389; 93923; 93970; J0692; J1940; J3370; U0003; U0005

== ENCOUNTER 2022-04-17 08:42 | Outpatient (CLI) | payer OTHER | END 2022-04-17 08:43 | disposition home or self-care (01) | LOC: BICMAMMO 08:42 | PROVIDERS: ATTEND Student in an Organized Health Care Education/Training Program | DX: Z13.820 Encounter for screening for osteoporosis (principal); S12.0 Fracture of first cervical vertebra; M85.89 Other specified disorders of bone density and structure, multiple sites | CPT/HCPCS: 77080 ==